=== PATIENT | male | born 1955 | race Caucasian/White ===

== ENCOUNTER 2023-06-19 06:19 | Outpatient (CLI) | payer BC, MEDICARE, SELFPAY ==
--- NOTE | 2023-06-19 07:53 | W.ANESCHARGE ---
Anesthesia Charges Start Date/Time Anesthesia Start Date: 06/19/23 Anesthesia Start Time: 07:15 Stop Date/Time Anesthesia Stop Date: 06/19/23 Anesthesia Stop Time: 07:48
--- NOTE | 2023-06-19 10:22 | W.ANESCHARGE ---
Anesthesia Charges Start Date/Time Anesthesia Start Date: 06/19/23 Anesthesia Start Time: 07:15 Stop Date/Time Anesthesia Stop Date: 06/19/23 Anesthesia Stop Time: 07:48
== END 2023-06-19 06:20 | disposition home or self-care (01) ==
PROVIDERS: PCP Family Medicine; Visit Provider Internal Medicine Gastroenterology
DX: Z12.11 Encounter for screening for malignant neoplasm of colon (principal)
CPT/HCPCS: 00811; 00812; 45378; J2704